=== PATIENT | male | born 1980 ===

== ENCOUNTER 2021-02-13 13:00 | Emergency (ER) | payer SELFPAY ==
[~2021-02-13] VITALS: Ht 172.7 cm; Wt 68.0 kg
[2021-02-13] MEDS: IV NORMAL SALINE 500 ML BAG IV ONE (13:50)
[2021-02-13] MEDS ORDERED: MORPHINE SULFATE 4 MG/1 ML DISP.SYRIN ONE (13:55)
[2021-02-13] MEDS: ONDANSETRON 4 MG/2 ML VIAL IV ONE (13:55)
[2021-02-13] MEDS ORDERED: ONDANSETRON 4 MG/2 ML VIAL ONE (13:56)
[2021-02-13 13:59] LABS: *BILIRUBIN,URIN NEGATIVE (NEGATIVE); *CLARITY,URINE CLEAR (CLEAR); *COLOR,URINE YELLOW (YELLOW); *KETONES,URINE NEGATIVE (NEGATIVE); *UROBILINOGEN,URINE 0.2 E.U./dl (NORMAL); LEUKOCYTE ESTERASE ,URINE NEGATIVE (NEGATIVE); NITRITE, URINE NEGATIVE (NEGATIVE); UGLUCOSE NEGATIVE (NEGATIVE)
[2021-02-13] MEDS: MORPHINE SULFATE 4 MG/1 ML DISP.SYRIN IV ONE (13:59)
[2021-02-13 14:00] LABS: BILIRUBIN,TOTAL 1.2 mg/dL (0.2-1.0); CREATININE 1.3 mg/dL (0.6-1.3); TOTAL PROTEIN, SERUM 7.8 g/dL (6.4-8.2)
[2021-02-13] MEDS: KETOROLAC TROMETHAMINE 15 MG INJ IVP ONE (14:00)
[2021-02-13 14:01] LABS: *BLOOD, URINE TRACE (NEGATIVE)
[2021-02-13] MEDS ORDERED: KETOROLAC TROMETHAMINE 15 MG INJ ONE (14:01)
[2021-02-13 14:31] LABS: HEMATOCRIT 38.6 % (36.7-47.1); MEAN CORPUSCULAR HEMOGLOBIN 19.3 uug (23.8-33.4); MEAN CORPUSCULAR VOLUME 58.9 fL (73.0-96.2); PLATELET COUNT (AUTO) 221 K/uL (152-348)
[2021-02-13] MEDS ORDERED: ONDA4TAB11 PO (15:00)
--- NOTE | 2021-02-13 15:02 | NUR ---
PO trial per provider order. Will re-assess
[2021-02-13 15:12] LABS: BACTERIA,URINE NONE SEEN /HPF (NONE SEEN); RBC,URINE 0-3 /HPF (0-3); WBC,URINE 0-3 /HPF (0-3)
[2021-02-13 15:41] VITALS: BP 129/93
--- NOTE | 2021-02-13 15:41 | NUR ---
States improvement with S/S. Denies Nausea at this time. Patient discharged to home in stable condition. Written and verbal after care instructions given. Patient verbalizes understanding of instructions. Stressed follow up or return to ER for worsening s/s.
[2021-02-13 16:20] LABS: SQUAMOUS EPITHELIAL CELL,UR FEW /HPF (NONE SEEN); URINE AMORPHOUS URATE FEW /HPF
== END 2021-02-13 15:41 | disposition home or self-care (01) ==
LOC: ER 13:00
DX: K52.9 Noninfective gastroenteritis and colitis, unspecified (principal); E86.0 Dehydration; R17 Unspecified jaundice
CPT/HCPCS: 36415; 80053; 81001; 83690; 85025; 96361; 96374; 96375; 99284; J1885; J2405; A4663; J2270; J7030